=== PATIENT | male | born 1955 | race Caucasian/White ===

== ENCOUNTER → 2018-02-08 20:30 | Outpatient (REF) | payer MEDICARE, MEDICAID, SELFPAY ==
[2018-02-13 02:07] LABS: EDDP-by GC-MS 11827 ng/mL; Methadone Interpretation Positive.; Methadone-by GC-MS 9645 ng/mL
[2018-02-13 07:24] LABS: Amphetamine Negative ng/mL (Cutoff: 25); Amphetamines Interpretation Negative.; MDA (Ecstasy Metabolite) Negative ng/mL (Cutoff: 25); MDMA (Ecstasy) Negative ng/mL (Cutoff: 25); Methamphetamine Negative ng/mL (Cutoff: 25); Phentermine Negative ng/mL (Cutoff: 25); Pseudoephedrine/Ephedrine Negative ng/mL (Cutoff: 25)
[2018-02-13 08:49] LABS: O-desmethyltramadol 72 ng/mL (Cutoff:25); Tramadol 62 ng/mL (Cutoff:25)
== END ==
LOC: NCHCN 20:30
PROVIDERS: PCP Internal Medicine; Visit Provider Internal Medicine
DX: M54.5 Low back pain (principal); M25.532 Pain in left wrist; M25.562 Pain in left knee; M19.019 Primary osteoarthritis, unspecified shoulder; G89.29 Other chronic pain; Z51.81 Encounter for therapeutic drug level monitoring
CPT/HCPCS: 80324; 80373; 80358

== ENCOUNTER 2018-08-06 20:56 | Outpatient (REF) | payer MEDICARE, MEDICAID, SELFPAY ==
[2018-08-06 21:10] LABS: Abs Immature Grans 0.02 k/cumm (0.0-0.09); Absolute Basophil Count 0.03 k/cumm (0.0-0.2); Absolute Eosinophil Count 0.47 k/cumm (0.0-0.7); Absolute Lymphocyte Count 2.41 k/cumm (1.2-3.4); Absolute Monocyte Count 0.74 k/cumm (0.11-0.7); Absolute Neutrophil Count 4.75 k/cumm (1.2-6.7); Basophils % 0.4; Eosinophils % 5.6; HGB 12.1 g/dL (13.5-17.5); Immature Grans % 0.2; Lymphocytes % 28.6; Mean Corp. HGB Concentration 31.8 g/dL (32.0-36.0); Mean Corpuscular Hemoglobin 28.3 pg (27.0-33.0); Mean Corpuscular Volume 88.8 fL (80-95); Mean Platelet Volume 9.2 fL (8.0-11.0); Monocytes % 8.8; Neutrophils % 56.4; Platelet Count 289 x1000/uL (130-400); RBC 4.28 m/cumm (4.50-6.00); RBC Distribution Width 14.2 % (11.8-14.1); White Blood Cell Count 8.42 k/cumm (4.4-10.8)
[2018-08-06 21:30] LABS: Cholesterol 148 mg/dL (50-200); HDL Cholesterol 44 mg/dL (40-60); LDL CHOLESTEROL 91 mg/dL (<100); Triglyceride 68 mg/dL (30-150)
== END 2018-08-06 21:16 ==
LOC: NCHCN 20:56
PROVIDERS: PCP Internal Medicine; Visit Provider Internal Medicine
DX: E11.9 Type 2 diabetes mellitus without complications (principal); I10 Essential (primary) hypertension; J44.9 Chronic obstructive pulmonary disease, unspecified; M54.5 Low back pain; L98.9 Disorder of the skin and subcutaneous tissue, unspecified
CPT/HCPCS: 80061; 83721; 85025

== ENCOUNTER 2021-03-22 16:11 | Outpatient (REF) | payer OTHER, MEDICAID, SELFPAY ==
[2021-03-22 14:13] LABS: HCT 42.2 % (40.0-50.0); HGB 13.1 g/dL (13.5-17.5); MCH 27.9 pg (27.0-33.0); MCV 89.8 fL (80-95); MPV 9.4 fL (8.0-11.0); Platelet Count 397 10^3/uL (130-400); RDW 12.6 % (11.8-14.1); RDW-SD 41.7 fL; WBC 11.59 10^3/uL (4.4-10.8)
[2021-03-22 14:42] LABS: ALT 35 U/L (16-63); AST 20 U/L (15-37); Albumin 2.8 g/dL (3.4-5.0); Alkaline Phosphatase 136 U/L (46-116); Anion Gap 7.6 mmol/L (3-11); BUN 26 mg/dL (7-18); Bilirubin, Total 0.2 mg/dL (0.2-1.0); CO2 29.4 mmol/L (21.0-32.0); CREATININE 1.1 mg/dL (0.70-1.30); Calcium 9.1 mg/dL (8.5-10.1); Chloride 103 mmol/L (98-107); Glucose 248 mg/dL (74-106); Potassium 4.8 mmol/L (3.5-5.1); Sodium 140 mmol/L (136-145); Total Protein 8.5 g/dL (6.4-8.2)
[2021-03-22 14:46] LABS: Hemoglobin A1C 8.4 % (<5.7)
[2021-03-23 10:39] LABS: Hepatitis C Ab w Rflx HCV PCR Negative (Negative)
[2021-03-23 16:48] LABS: COVID-19 RT-PCR UVMMC Result Negative (Negative)
== END 2021-03-22 16:12 | disposition home or self-care (01) ==
LOC: NCHCN 16:11
PROVIDERS: PCP Internal Medicine; Visit Provider Internal Medicine
DX: E11.9 Type 2 diabetes mellitus without complications (principal); I10 Essential (primary) hypertension; R53.83 Other fatigue; Z11.59 Encounter for screening for other viral diseases; Z20.822 Contact with and (suspected) exposure to COVID-19
CPT/HCPCS: 80053; 85027; 86803; U0003; 83036

== ENCOUNTER 2022-12-27 15:07 | Outpatient (REF) | payer OTHER, SELFPAY ==
[2022-12-27 22:25] LABS: Anion Gap 7.9 mmol/L (3-11); BUN 40 mg/dL (7-18); CO2 29.1 mmol/L (21.0-32.0); CREATININE 1.3 mg/dL (0.70-1.30); Calcium 9.5 mg/dL (8.5-10.1); Calculated LDL 82 mg/dL (<100); Chloride 103 mmol/L (98-107); Cholesterol 137 mg/dL (<200); Estimated GFR 59.84 (mL/min/1.73m2); Glucose 110 mg/dL (74-106); HDL Cholesterol 45 mg/dL (40-60); Potassium 4.4 mmol/L (3.5-5.1); Sodium 140 mmol/L (136-145); Triglyceride 50 mg/dL (<150)
[2022-12-27 22:26] LABS: Hemoglobin A1C 6.9 % (<5.7)
== END 2022-12-27 15:08 | disposition home or self-care (01) ==
LOC: NCHCN 15:07
PROVIDERS: PCP Internal Medicine; Visit Provider Internal Medicine
DX: J44.9 Chronic obstructive pulmonary disease, unspecified (principal); M16.0 Bilateral primary osteoarthritis of hip; M54.50 Low back pain, unspecified; G89.29 Other chronic pain; E11.9 Type 2 diabetes mellitus without complications; I10 Essential (primary) hypertension; Z86.010 Personal history of colon polyps
CPT/HCPCS: 80048; 80061; 83036

== ENCOUNTER 2024-03-08 18:18 | Outpatient (REF) | payer MEDICARE, MEDICAID, SELFPAY ==
[2024-03-08 15:32] LABS: Abs Immature Grans 0.03 10^3/uL (0.0-0.06); Absolute Basophil Count 0.05 10^3/uL (0.0-0.2); Absolute Eosinophil Count 0.22 10^3/uL (0.0-0.7); Absolute Lymphocyte Count 1.49 10^3/uL (1.2-3.4); Absolute Monocyte Count 0.81 10^3/uL (0.1-0.8); Basophils % 0.6 %; Eosinophils % 2.8 %; HCT 36.8 % (40.0-50.0); HGB 11.5 g/dL (13.5-17.5); Immature Grans % 0.4 %; Lymphocytes % 18.6 %; MCH 28.1 pg (27.0-33.0); MCHC 31.3 % (32.0-36.0); MCV 90 fL (80-95); MPV 9.9 fL (8.0-11.0); Monocytes % 10.1 %; Neutrophils % 67.5 %; Platelet Count 210 10^3/uL (130-400); RBC 4.09 10^6/uL (4.36-5.78); RDW 14.1 % (11.8-14.1); RDW-SD 46.4 fL
[2024-03-08 16:03] LABS: ALT 29 U/L (16-63); AST 20 U/L (15-37); Albumin 2.7 g/dL (3.4-5.0); Alkaline Phosphatase 96 U/L (46-116); Anion Gap 4.8 mmol/L (3-11); BUN 23 mg/dL (7-18); CO2 32.2 mmol/L (21.0-32.0); CREATININE 1.1 mg/dL (0.70-1.30); Calcium 8.8 mg/dL (8.5-10.1); Chloride 103 mmol/L (98-107); Estimated GFR 72.67 (mL/min/1.73m2); Glucose 125 mg/dL (74-106); Potassium 4.2 mmol/L (3.5-5.1); Sodium 140 mmol/L (136-145); Total Protein 7.3 g/dL (6.4-8.2)
== END 2024-03-08 18:19 | disposition home or self-care (01) ==
LOC: NCHCN 18:18
PROVIDERS: PCP Family Medicine; Visit Provider Family Medicine
DX: J44.0 Chronic obstructive pulmonary disease with (acute) lower respiratory infection (principal)
CPT/HCPCS: 80053; 85025